=== PATIENT | male | born 1970 | race Caucasian/White ===

== ENCOUNTER 2016-06-30 06:20 | Day surgery (SDC) | payer BC ==
[2016-06-26 15:09] LABS: HEMATOCRIT 42.4 % (40.0-51.0)
--- NOTE | ~2016-06-30 | OP ---
Record Of Operation [facility] [address]. 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 PROCEDURE: Wedge excision of the lower lip with complex closure. SURGEON: Chad Schafer M.D. ANESTHESIA: General. COMPLICATIONS: None. COUNTS: All counts correct following the procedure. ESTIMATED BLOOD LOSS: 2 mL. PREOPERATIVE INFORMED CONSENT: We discussed the risks and benefits of surgery including, but not limited to bleeding, infection, possible scarring of the lower lip. Consent is on the chart. PROCEDURE IN DETAIL: The patient was brought to the operating suite, placed on supine position. General endotracheal anesthesia was initiated without incident. The patient's lower lip was marked out and injected with 3 mL of 1% lidocaine and 1:100,000 epinephrine for hemostasis. Following this, a 15-blade scalpel was used to make incision down the underlying lower lip musculature. The specimen was then removed en bloc and sent for frozen section. Frozen section showed no evidence for residual carcinoma. The bleeding was controlled using bipolar cautery, and the muscular layer was closed using interrupted 4-0 Vicryl followed by a skin closure using interrupted 5-0 plain gut suture making sure that the remaining border was carefully reapproximated and the mucosal aspect of the lip was closed using interrupted 4-0 chromic. The patient was then awaken from anesthesia and taken to the recovery room in stable condition. DENIS/JOSE FRANCISCO Chad Schafer M.D. / [id number] CC: Chad Schafer M.D. Record Of Operation [facility] [id number] [place]. [address] NAME: TAMANNA NOYOLA : 74 STATUS : REG [facility] PAT#: [id number] AGE: 46 ADM/REG DATE : 06/30/16 MR#: [id number] REPORT SERV DATE: 06/30/16 DICTATED BY: CHAD SCHAFER DATE: 06/30/16 REPORT STATUS : Draft TRANSCRIBED BY: MODL DATE: 06/30/16 Leonel Avalos D.O.
[~2016-06-30 06:20] MED LIST: NORCO1 TAB PO; PRILO PO; TESTOSTERONE
== END 2016-06-30 23:59 | disposition home or self-care (01) ==
LOC: MSC 06:20
PROVIDERS: Otolaryngology
PROC: 0CB1XZX Excision of Lower Lip, External Approach, Diagnostic (ICD-10-PCS; principal; 2016-06-30 07:15)
DX: K13.5 Oral submucous fibrosis (principal)
CPT/HCPCS: 85014; 85018; 88305; 88331; 93005; A9270-GY; J0690; J2250; J2270; J2405; J2710; J3010